=== PATIENT | male | born 1990 | race Caucasian/White ===

== ENCOUNTER 2017-04-05 20:05 | Emergency (ER) | payer SELFPAY ==
[~2017-04-05] VITALS: Ht 165.1 cm; Wt 56.7 kg
[2017-04-05] MEDS ORDERED: ONDANSETRON 2MG/ML, 2ML IVPush ONE ×2 (20:30→22:00)
[2017-04-05] MEDS ORDERED: MAALOX/HYOSCYAMINE/LIDOCAINE 45 ML BOTTLE PO ONE (20:30)
[2017-04-05] MEDS ORDERED: SODIUM CHLORIDE FLUSH 10ML SYR IVF ONE ×2 (20:30→22:00)
[2017-04-05] MEDS ORDERED: ALBUTEROL/IPRATROPIUM 2.5MG/0.5MG, 3 ML NPPB ONE (20:30)
[2017-04-05] MEDS ORDERED: SODIUM CHLORIDE 0.9% 1,000ML IVBOLUS ONE (20:30)
[2017-04-05] MEDS ORDERED: FAMOTIDINE 20 MG/2 ML IVP ONE (20:30)
[2017-04-05] MEDS ORDERED: ALBUTEROL/IPRATROPIUM 2.5MG/0.5MG, 3 ML ONE (20:47)
[2017-04-05] MEDS ORDERED: FAMOTIDINE 20 MG TABLET PO ONE (21:00)
[2017-04-05] MEDS ORDERED: ONDANSETRON ODT 4 MG PO ONE (21:00)
[2017-04-05 21:05] LABS: ASPARTATE AMINO TRANSFERASE 92 U/L (15-37); BLOOD UREA NITROGEN 9 mg/dL (7-18)
[2017-04-05] MEDS ORDERED: FAMOTIDINE 20 MG TABLET ONE (21:07)
[2017-04-05] MEDS ORDERED: MAALOX/HYOSCYAMINE/LIDOCAINE 45 ML BOTTLE ONE (21:07)
[2017-04-05] MEDS ORDERED: ONDANSETRON ODT 4 MG ONE (21:07)
[2017-04-05] MEDS ORDERED: MORPHINE SULFATE 4 MG/ML, 1ML ONE ×2 (22:32→22:48)
[2017-04-05] MEDS ORDERED: ONDANSETRON 2MG/ML, 2ML ONE (22:32)
[2017-04-05] MEDS: MORPHINE SULFATE 4 MG/ML, 1ML IVPush PRN ×2 (22:34→22:49)
[2017-04-05 23:30] VITALS: BP 153/88
== END 2017-04-06 00:33 | disposition home or self-care (01) ==
LOC: ED 22:09
DX: K80.20 Calculus of gallbladder without cholecystitis without obstruction (principal); R79.89 Other specified abnormal findings of blood chemistry
CPT/HCPCS: 36415; 76700; 80053; 83690; 85025; 86677; 96374; 96375; 96376; 99285; J2405; Q0162

== ENCOUNTER 2017-04-07 15:18 | Inpatient (IN) | payer SELFPAY ==
[~2017-04-07] VITALS: Ht 165.1 cm; Wt 60.0 kg
[2017-04-07] MEDS ORDERED: ONDANSETRON 2MG/ML, 2ML IVPush ONE (15:30)
[2017-04-07] MEDS ORDERED: SODIUM CHLORIDE 0.9% 1,000ML IVBOLUS ONE (15:30)
[2017-04-07] MEDS ORDERED: HYDROmorphone 1 MG/ML, 1ML IVPush PRN (15:30)
[2017-04-07] MEDS ORDERED: ONDANSETRON 2MG/ML, 2ML ONE ×2 (15:55→18:47)
[2017-04-07] MEDS ORDERED: HYDROmorphone 1 MG/ML, 1ML ONE ×3 (15:55→20:39)
[2017-04-07 15:59] LABS: ASPARTATE AMINO TRANSFERASE 90 U/L (15-37); BLOOD UREA NITROGEN 16 mg/dL (7-18)
[2017-04-07] MEDS ORDERED: MEPERIDINE/PF 25MG/0.5ML IVPush PRN (18:30)
[2017-04-07] MEDS ORDERED: hydrALAzine 20 MG/ML, 1ML IV PRN (18:30)
[2017-04-07] MEDS ORDERED: OXYcodone 5 MG/5 ML ORAL.SOL UDC PO PRN (18:30)
[2017-04-07] MEDS ORDERED: MIDAZOLAM 1 MG/ML, 2ML IV PRN (18:30)
[2017-04-07] MEDS ORDERED: PROMETHAZINE 25 MG/ML, 1ML IV PRN (18:30)
[2017-04-07] MEDS ORDERED: LABETALOL 5MG/ML, 20ML IV PRN (18:30)
[2017-04-07] MEDS ORDERED: ONDANSETRON 2MG/ML, 2ML IVPush PRN (18:30)
[2017-04-07] MEDS ORDERED: HYDROmorphone 1 MG/ML, 1ML IV ONE (18:30)
[2017-04-07] MEDS ORDERED: ALBUTEROL/IPRATROPIUM 2.5MG/0.5MG, 3 ML NPPB PRN (18:30)
[2017-04-07] MEDS ORDERED: BUPIVACAINE/PF-EPI 0.5% 1:200K ONE (18:32)
[2017-04-07] MEDS ORDERED: MIDAZOLAM 1 MG/ML, 2ML ONE (18:34)
[2017-04-07] MEDS ORDERED: FENTANYL PF 250 MCG/5ML ONE (18:34)
[2017-04-07] MEDS ORDERED: DEXAMETHASONE 4 MG/ML, 1ML ONE (18:47)
[2017-04-07] MEDS ORDERED: METOCLOPRAMIDE 5 MG/ML, 2ML ONE (18:47)
[2017-04-07] MEDS ORDERED: SUCCINYLCHOLINE 20 MG/ML, 10ML ONE (18:47)
[2017-04-07] MEDS ORDERED: PROPOFOL 10 MG/ML, 20ML ONE (18:47)
[2017-04-07] MEDS ORDERED: ROCURONIUM 10 MG/ML ONE (18:47)
[2017-04-07] MEDS ORDERED: NEOSTIGMINE 1 MG/ML, 10ML ONE (18:47)
[2017-04-07] MEDS ORDERED: CEFOTETAN 1 GM ONE (18:47)
[2017-04-07] MEDS ORDERED: GLYCOPYRROLATE 0.2MG/1ML ONE (18:47)
[2017-04-07] MEDS ORDERED: OMNIPAQUE 350 MG/ML, 50 ML BOTTLE ONE (19:37)
[2017-04-07] MEDS ORDERED: FENTANYL PF 100 MCG/2ML ONE ×2 (19:47→20:25)
[2017-04-07] MEDS ORDERED: OXYcodone 5 MG/5 ML ORAL.SOL UDC ONE (19:47)
[2017-04-07] MEDS ORDERED: hydrALAzine 20 MG/ML, 1ML ONE (19:47)
[2017-04-07] MEDS: FENTANYL PF 100 MCG/2ML IV PRN ×4 (19:58→20:41)
[2017-04-07] MEDS ORDERED: MEPERIDINE/PF 50 MG/ML ONE (20:04)
[2017-04-07] MEDS: HYDROmorphone 1 MG/ML, 1ML IV PRN ×2 (20:40→20:46)
[2017-04-07] MEDS ORDERED: KETOROLAC 30 MG/1 ML ONE (20:59)
[2017-04-07] MEDS ORDERED: KETOROLAC 30 MG/1 ML IV ONE (21:30)
[2017-04-07] MEDS ORDERED: HYDROcodone/APAP 5/325 TABLET PO PRN (22:00)
[2017-04-07] MEDS: morphine SULFATE 10 MG/ML, 1ML IV PRN ×4 (22:13→23:32)
[2017-04-08] MEDS: morphine SULFATE 10 MG/ML, 1ML IV PRN ×8 (00:52→12:58)
[2017-04-08 02:30] VITALS: BP 105/68
[2017-04-08 06:50] VITALS: BP 96/57
[2017-04-08] MEDS: CEFOTETAN PMX 1GM/50ML 50 ML IVPB SCH ×2 (06:54→19:39)
[2017-04-08] MEDS: ONDANSETRON 2MG/ML, 2ML IV PRN ×2 (08:23→17:19)
[2017-04-08 09:05] LABS: ASPARTATE AMINO TRANSFERASE 164 U/L (15-37); BLOOD UREA NITROGEN 8 mg/dL (7-18)
[2017-04-08] MEDS ORDERED: FENTANYL PF 250 MCG/5ML ONE (09:55)
[2017-04-08] MEDS ORDERED: MIDAZOLAM 1 MG/ML, 2ML ONE (09:56)
[2017-04-08] MEDS ORDERED: PROPOFOL 10 MG/ML, 20ML ONE (10:04)
[2017-04-08] MEDS ORDERED: SUCCINYLCHOLINE 20 MG/ML, 10ML ONE (10:04)
[2017-04-08] MEDS ORDERED: ONDANSETRON 2MG/ML, 2ML ONE (10:04)
[2017-04-08] MEDS ORDERED: ROCURONIUM 10 MG/ML ONE (10:04)
[2017-04-08] MEDS ORDERED: ONDANSETRON 2MG/ML, 2ML IVPush PRN (10:30)
[2017-04-08] MEDS ORDERED: FENTANYL PF 100 MCG/2ML IV PRN (10:30)
[2017-04-08] MEDS ORDERED: ACETAMINOPHEN 325 MG TABLET PO PRN (10:30)
[2017-04-08] MEDS ORDERED: hydrALAzine 20 MG/ML, 1ML IV PRN (10:30)
[2017-04-08] MEDS ORDERED: METOCLOPRAMIDE 5 MG/ML, 2ML IV PRN (10:30)
[2017-04-08] MEDS ORDERED: HYDROmorphone 1 MG/ML, 1ML IV PRN (10:30)
[2017-04-08] MEDS ORDERED: LABETALOL 5MG/ML, 20ML IV PRN (10:30)
[2017-04-08] MEDS ORDERED: OXYcodone 5 MG/5 ML ORAL.SOL UDC PO PRN (10:30)
[2017-04-08] MEDS ORDERED: LACTATED RINGERS 500 ML IV ONE (11:20)
[2017-04-08] MEDS ORDERED: INDOMETHACIN 50 MG SUPP.RECT ONE (11:24)
[2017-04-08] MEDS ORDERED: INDOMETHACIN 50 MG SUPP.RECT PR ONE ×2 (11:25→12:00)
[2017-04-08] MEDS ORDERED: LACTATED RINGERS 1,000 ML IVBOLUS ONE (12:00)
[2017-04-08] MEDS ORDERED: OMNIPAQUE 350 MG/ML, 50 ML BOTTLE ONE (13:17)
[2017-04-08 14:09] VITALS: BP 133/76
[2017-04-08] MEDS: HYDROmorphone 1 MG/ML, 1ML IV PRN ×6 (14:30→22:30)
[2017-04-08] MEDS ORDERED: HYDROmorphone 1 MG/ML, 1ML ONE (14:48)
[2017-04-08 15:46] VITALS: BP 118/65
[2017-04-08] MEDS: LACTATED RINGERS 1,000 ML IV SCH (16:28)
[2017-04-08 20:34] VITALS: BP 130/68
[2017-04-08] MEDS ORDERED: OMEPRAZOLE 20 MG CAPSULE.DR PO SCH (21:00)
[2017-04-09] MEDS: LACTATED RINGERS 1,000 ML IV SCH ×3 (00:24→10:00)
[2017-04-09 00:51] VITALS: BP 106/66
[2017-04-09 04:49] VITALS: BP 123/76
[2017-04-09 05:40] LABS: BLOOD UREA NITROGEN 3 mg/dL (7-18)
[2017-04-09 05:42] LABS: ASPARTATE AMINO TRANSFERASE 61 U/L (15-37)
[2017-04-09 06:50] VITALS: BP 136/84
[2017-04-09] MEDS ORDERED: PANTOPRAZOLE 40 MG IV IVPush SCH (07:30)
[2017-04-09] MEDS ORDERED: LACTATED RINGERS 1,000 ML IV SCH (10:00)
[2017-04-09 10:09] VITALS: BP 130/71
[2017-04-09] MEDS ORDERED: HYDR-3240 PO (11:20)
== END 2017-04-09 11:32 | disposition home or self-care (01) | DRG 419 ==
LOC: ED 18:06 → EDIP 18:07 → ED 18:08 → 4NOR 21:34 → DCLOUNGE 04-09 11:15
PROVIDERS: ADMIT Surgery Vascular Surgery; ATTEND Surgery Vascular Surgery
PROC: 0FT44ZZ Resection of Gallbladder, Percutaneous Endoscopic Approach (ICD-10-PCS; 2017-04-07)
PROC: 0DJ08ZZ Inspection of Upper Intestinal Tract, Via Natural or Artificial Opening Endoscopic (ICD-10-PCS; 2017-04-08)
PROC: BF131ZZ Fluoroscopy of Gallbladder and Bile Ducts using Low Osmolar Contrast (ICD-10-PCS; 2017-04-08)
PROC: 0F7D8DZ Dilation of Pancreatic Duct with Intraluminal Device, Via Natural or Artificial Opening Endoscopic (ICD-10-PCS; principal; 2017-04-08 09:15)
DX: K80.50 Calculus of bile duct without cholangitis or cholecystitis without obstruction (principal); R79.89 Other specified abnormal findings of blood chemistry; Z83.79 Family history of other diseases of the digestive system; F17.210 Nicotine dependence, cigarettes, uncomplicated
CPT/HCPCS: 36415; 74300; 74330; 76700; 80053; 81003; 83690; 85025; 88304; 96361; 96374; 96375; J1100; J1170; J1885; J2175; J2250; J2405; J2704; J2710; J3010; J3490; Q9967; C1769; C1894; C2625; C9113; J0330; J0360; J2270; J2765; J7030; J7120; S0074